=== PATIENT | female | born 1965 | race Caucasian/White ===

== ENCOUNTER 2019-08-27 14:39 | Outpatient (REF) | payer MEDICAID, SELFPAY ==
--- NOTE | 2019-08-27 10:10 | PAPFT_PTH ---
PATIENT: Leola Hayes LOC: [facility] U#:[id number] AGE/SX: 53/F ROOM: RE08/27/[address]: Cliff Gonzalez MD : 1965 BED: DIS: 08/27/2019 SPEC #: [id number] RECD: 08/27/19 16:43 STATUS: CHANTE REDina #: [id number] GREGORY: 08/27/19 10:[address]: Cliff Gonzalez DEPT: [facility] Cytology RECD BY: Sydney Hebert Tissues: 1 - CX/ENDOCX FOR PAP SMEARS Procedures: PAP THIN PREP/UVM Screening HPV DNA PROBE Comments: [id number]
== END 2019-08-27 14:59 ==
LOC: LBN 14:39
PROVIDERS: PCP Family Medicine; Visit Provider Family Medicine
DX: Z12.4 Encounter for screening for malignant neoplasm of cervix (principal); Z11.51 Encounter for screening for human papillomavirus (HPV)
CPT/HCPCS: 88142; 87624

== ENCOUNTER 2019-08-29 03:00 | Outpatient (CLI) | payer MEDICAID, SELFPAY ==
[2019-08-29 10:51] LABS: HGB 13.3 g/dL (12.0-15.5); Mean Corp. HGB Concentration 33.3 g/dL (32.0-36.0); Mean Corpuscular Hemoglobin 29.3 pg (27.0-33.0); Mean Corpuscular Volume 88.1 fL (80-95); Mean Platelet Volume 9.9 fL (8.0-11.0); Platelet Count 337 x1000/uL (130-400); RBC 4.54 m/cumm (4.00-5.20); RBC Distribution Width 13.2 % (11.7-14.6); White Blood Cell Count 4.97 k/cumm (4.4-10.8)
[2019-08-29 11:03] LABS: ALT 36 U/L (14-59); AST 17 U/L (15-37); Alkaline Phosphatase 91 U/L (46-116); Anion Gap 10.5 mmol/L (3-11); BUN 16 mg/dL (7-18); Bilirubin, Total 0.2 mg/dL (0.2-1.0); CO2 26.5 mmol/L (21.0-32.0); CREATININE 0.67 mg/dL (0.55-1.02); Calcium 8.8 mg/dL (8.5-10.1); Calculated LDL 147 mg/dL (<100); Chloride 105 mmol/L (98-107); Cholesterol 211 mg/dL (<200); Glucose 97 mg/dL (74-106); HDL Cholesterol 50 mg/dL (40-60); Potassium 4.5 mmol/L (3.5-5.1); Sodium 142 mmol/L (136-145); Triglyceride 74 mg/dL (<150)
[2019-08-29 11:37] LABS: Hemoglobin A1C 6.2 % (3.8-5.6)
== END 2019-08-29 03:20 ==
PROVIDERS: PCP Family Medicine; Visit Provider Family Medicine
DX: Z83.3 Family history of diabetes mellitus (principal); Z13.1 Encounter for screening for diabetes mellitus; Z13.220 Encounter for screening for lipoid disorders; Z00.00 Encounter for general adult medical examination without abnormal findings
CPT/HCPCS: 36415; 80053; 80061; 85027; 83036

== ENCOUNTER 2020-08-24 02:39 | Outpatient (CLI) | payer MEDICAID, SELFPAY ==
--- NOTE | 2020-08-24 16:22 | DI.MAMMO_ITS ---
EXAM: MAMMO SCREENING CLINICAL HISTORY: screening,Z12.31 TECHNIQUE: Mammograms were interpreted according to the usual protocol including computer analysis w [employer] CAD system, tomosynthesis and C-view imaging. COMPARISON: FINDINGS: Breasts are moderate density with fairly symmetrical distribution of fibroglandular tissue. No domin ant mass or clumped microcalcification is identified in either breast. The current examination is co mpared with previous examinations including December 2015 and there is question of interval development o f a couple of small focal areas of nodularity in the central retroareolar portion of the left breast seen on CC view. On tomographic views, 1 of these questionable areas of nodularity measures up to ab out 9-10 millimeters in diameter. No other significant change seen. Additional mammographic views a nd breast ultrasound requested on the left to evaluate possible small new breast mass or masses. IMPRESSION: Additional mammographic views of the left breast and left breast ultrasound requested as described ab hansae. BI-RADS Category 0 - Assessment Incomplete: Need additional imaging evaluation Breast Density - Category B - Scattered areas of fibroglandular density
== END 2020-08-24 02:59 ==
PROVIDERS: PCP Family Medicine; Visit Provider Family Medicine
DX: Z12.31 Encounter for screening mammogram for malignant neoplasm of breast (principal); R92.8 Other abnormal and inconclusive findings on diagnostic imaging of breast
CPT/HCPCS: 77063; 77067

== ENCOUNTER 2020-08-31 02:01 | Outpatient (CLI) | payer MEDICAID, SELFPAY ==
--- NOTE | 2020-08-31 13:55 | DI.MAMMO_ITS ---
EXAM: MAMMO SCREEN CALL BACK UNI CLINICAL HISTORY: F/U MAMMO, ? DEVELOPMENT OF NODULARITY TECHNIQUE: Spot compression views and tomographic imaging were performed. COMPARISON: 2011 through 2015 and recent exam of 24 August 2020. FINDINGS: No suspicious masses or suspicious microcalcifications are seen. No persistent abnormality is seen on the additional views performed. The findings are consistent wit h overlying fibroglandular tissue. There has been no significant change from prior exams. IMPRESSION: BI-RADS Category 1, Negative Yearly screening mammography is recommended. Breast Density - Category B, scattered fibroglandular densities.
== END 2020-08-31 02:21 ==
PROVIDERS: PCP Family Medicine; Visit Provider Family Medicine
DX: R92.8 Other abnormal and inconclusive findings on diagnostic imaging of breast (principal)
CPT/HCPCS: 77063; 77067

== ENCOUNTER 2020-08-31 19:26 | Outpatient (REF) | payer MEDICAID, SELFPAY ==
[2020-08-31 21:49] LABS: Hemoglobin A1C 6.3 % (<5.7)
[2020-08-31 21:58] LABS: Calculated LDL 124 mg/dL (<100); Cholesterol 224 mg/dL (<200); HDL Cholesterol 47 mg/dL (40-60); Triglyceride 265 mg/dL (<150)
== END 2020-08-31 19:27 | disposition home or self-care (01) ==
LOC: LBN 19:26
PROVIDERS: PCP Family Medicine; Visit Provider Nurse Practitioner Family
DX: Z00.00 Encounter for general adult medical examination without abnormal findings (principal)
CPT/HCPCS: 80061; 83036

== ENCOUNTER 2020-09-22 10:45 | Outpatient (CLI) | payer MEDICAID, SELFPAY ==
[2020-09-23 13:12] LABS: COVID-19 RT-PCR UVMMC Result Negative (Negative)
== END 2020-09-22 10:46 | disposition home or self-care (01) ==
PROVIDERS: PCP Family Medicine; Visit Provider Family Medicine
DX: Z20.822 Contact with and (suspected) exposure to COVID-19 (principal)
CPT/HCPCS: U0003

== ENCOUNTER 2020-09-25 02:40 | Outpatient (CLI) | payer MEDICAID, SELFPAY ==
[2020-09-26 14:37] LABS: COVID-19 RT-PCR UVMMC Result Negative (Negative)
== END 2020-09-25 02:41 | disposition home or self-care (01) ==
LOC: LBO 02:40
PROVIDERS: PCP Family Medicine; Visit Provider Family Medicine
DX: Z20.822 Contact with and (suspected) exposure to COVID-19 (principal)
CPT/HCPCS: U0003

== ENCOUNTER 2021-09-09 03:40 | Outpatient (CLI) | payer MEDICAID, SELFPAY ==
[2021-09-09 11:51] LABS: Abs Immature Grans 0.02 10^3/uL (0.0-0.06); Absolute Basophil Count 0.05 10^3/uL (0.0-0.2); Absolute Eosinophil Count 0.13 10^3/uL (0.0-0.7); Absolute Lymphocyte Count 1.89 10^3/uL (1.2-3.4); Absolute Neutrophil Count 3.16 10^3/uL (1.2-6.7); Basophils % 0.9; Eosinophils % 2.3; HCT 39.5 % (36.0-46.0); HGB 13.3 g/dL (11.2-15.7); Immature Grans % 0.4; Lymphocytes % 33.5; MCH 29.3 pg (27.0-33.0); MCHC 33.7 % (32.0-36.0); MPV 9.7 fL (8.0-11.0); Monocytes % 7.1; Neutrophils % 55.8; Nucleated RBC 0 %; Platelet Count 322 10^3/uL (130-400); RBC 4.54 10^6/uL (3.93-5.22); RDW-SD 41.5 fL; WBC 5.65 10^3/uL (4.4-10.8)
[2021-09-09 12:17] LABS: Hemoglobin A1C 6.4 % (<5.7)
[2021-09-09 13:25] LABS: Anion Gap 6.7 mmol/L (3-11); BUN 18 mg/dL (7-18); CO2 27.3 mmol/L (21.0-32.0); CREATININE 0.8 mg/dL (0.55-1.02); Calcium 9.3 mg/dL (8.5-10.1); Chloride 108 mmol/L (98-107); Glucose 104 mg/dL (74-106); Magnesium 2.4 mg/dL (1.8-2.4); Potassium 4.6 mmol/L (3.5-5.1); Sodium 142 mmol/L (136-145)
== END 2021-09-09 03:41 | disposition home or self-care (01) ==
LOC: LBO 03:41
PROVIDERS: PCP Family Medicine; Visit Provider Family Medicine
DX: R25.2 Cramp and spasm (principal); Z00.00 Encounter for general adult medical examination without abnormal findings; E66.9 Obesity, unspecified; R73.9 Hyperglycemia, unspecified; D64.9 Anemia, unspecified
CPT/HCPCS: 36415; 80048; 83036; 83735; 85025

== ENCOUNTER 2022-09-14 01:55 | Outpatient (CLI) | payer MEDICAID, SELFPAY ==
--- NOTE | 2022-09-14 15:41 | DI.MAMMO_ITS ---
Exam(s) MAMMO SCREENING EXAM: MAMMO SCREENING CLINICAL HISTORY: screening.Z12.39 TECHNIQUE: Bilateral full field digital CC and MLO mammographic images were obtained with 3D tomosyn thesis and utilizing computer aided detection (CAD). COMPARISON: Available for comparison. FINDINGS: Masses/Architectural Distortion: There is a new area of increased density in the upper central right breast on the MLO view. Microcalcifications: No suspicious pleomorphic-type are seen. Skin Thickening/Nipple Retraction: None. IMPRESSION: 1. New focal area of increased density in the upper central right breast on the MLO view. 2. This area should be further evaluated with a spot compression view. Limited right breast ultrasou nd may also be indicated at that time. BI-RADS Category 0 - Assessment Incomplete: Need additional imaging evaluation Breast Density - Category B - Scattered areas of fibroglandular density Breast density category C or D implies that the patient has dense breast tissue. Dense breast tissue is very common and is not abnormal but dense breast tissue can make it harder to find cancer on a ma mmogram. Also, dense breast tissue may increase their breast cancer risk. This information about the result of the mammogram report was provided to the patient to raise their awareness. Use this report when you speak with the patient about their risks for breast cancer, which includes their family hist ory. At that time, you may recommend for more screening tests (Ultrasound or MRI) as they might be us eful based on their risk. A negative radiographic report should not delay biopsy if a dominant or clinically suspicious mass is present. Up to ten percent of cancers are not identified on mammography. A negative report may reinforce clinical impression. Adenosis and dense breasts may obscure an underlying neoplasm. False positive reports average 6 to 10%. Patient will receive a letter notifying them of these results.
== END 2022-09-14 02:15 ==
LOC: DI 01:55
PROVIDERS: PCP Family Medicine; Visit Provider Family Medicine
DX: Z12.31 Encounter for screening mammogram for malignant neoplasm of breast (principal); R92.8 Other abnormal and inconclusive findings on diagnostic imaging of breast
CPT/HCPCS: 77063; 77067

== ENCOUNTER 2022-09-14 03:16 | Outpatient (CLI) | payer MEDICAID, SELFPAY ==
[2022-09-14 17:12] LABS: ALT 34 U/L (14-59); AST 18 U/L (15-37); Albumin 4.1 g/dL (3.4-5.0); Alkaline Phosphatase 89 U/L (46-116); Anion Gap 6.8 mmol/L (3-11); BUN 18 mg/dL (7-18); Bilirubin, Total 0.2 mg/dL (0.2-1.0); CO2 28.2 mmol/L (21.0-32.0); Calcium 9.1 mg/dL (8.5-10.1); Calculated LDL 151 mg/dL (<100); Chloride 105 mmol/L (98-107); Cholesterol 246 mg/dL (<200); Glucose 101 mg/dL (74-106); HDL Cholesterol 51 mg/dL (40-60); Potassium 4.1 mmol/L (3.5-5.1); Sodium 140 mmol/L (136-145); Total Protein 7.6 g/dL (6.4-8.2); Triglyceride 220 mg/dL (<150)
[2022-09-15 09:23] LABS: HIV-1/2 Ag & Ab Screen Negative (Negative)
[2022-09-16 09:36] LABS: Hepatitis C Ab w Rflx HCV PCR Negative (Negative)
== END 2022-09-14 03:17 | disposition home or self-care (01) ==
LOC: LBO 03:16
PROVIDERS: PCP Family Medicine; Visit Provider Family Medicine
DX: R73.09 Other abnormal glucose (principal); E78.5 Hyperlipidemia, unspecified; Z11.4 Encounter for screening for human immunodeficiency virus [HIV]; Z11.59 Encounter for screening for other viral diseases; Z00.00 Encounter for general adult medical examination without abnormal findings; E66.8 Other obesity
CPT/HCPCS: 36415; 80053; 80061; 86803; 87389

== ENCOUNTER 2022-09-23 00:58 | Outpatient (CLI) | payer MEDICAID, SELFPAY ==
--- NOTE | 2022-09-23 10:15 | DI.MAMMO_ITS ---
Exam(s) MAMMO SCREEN CALL BACK UNI EXAM: MAMMO SCREEN CALL BACK UNI CLINICAL HISTORY: NEW FOCAL AREA OF INCREASED DENSITY UPPER CENTRAL RT BREAST ON MLO VIEW TECHNIQUE: Spot compression views with tomographic imaging were performed. COMPARISON: 14 September 2022 and exams back to 2013. FINDINGS: No suspicious masses or suspicious microcalcifications are seen. No persistent abnormality is seen on the additional views performed. The findings are consistent wit h overlying fibroglandular tissue. There has been no significant change from prior exams. IMPRESSION: BI-RADS Category 1, Negative Yearly screening mammography is recommended. Breast Density - Category B, scattered fibroglandular densities.
== END 2022-09-23 01:18 ==
LOC: DI 00:59
PROVIDERS: PCP Family Medicine; Visit Provider Family Medicine
DX: Z12.31 Encounter for screening mammogram for malignant neoplasm of breast (principal); R92.8 Other abnormal and inconclusive findings on diagnostic imaging of breast; N64.59 Other signs and symptoms in breast
CPT/HCPCS: 77063; 77067

== ENCOUNTER 2023-09-04 03:39 | Outpatient (CLI) | payer MEDICAID, SELFPAY ==
[2023-09-04 16:16] LABS: Hemoglobin A1C 6.1 % (<5.7)
[2023-09-04 17:38] LABS: ALT 33 U/L (14-59); AST 16 U/L (15-37); Alkaline Phosphatase 85 U/L (46-116); Anion Gap 13.1 mmol/L (3-11); BUN 20 mg/dL (7-18); Bilirubin, Total 0.2 mg/dL (0.2-1.0); CO2 25.9 mmol/L (21.0-32.0); Calcium 9.4 mg/dL (8.5-10.1); Calculated LDL 151 mg/dL (<100); Chloride 105 mmol/L (98-107); Cholesterol 264 mg/dL (<200); Glucose 140 mg/dL (74-106); HDL Cholesterol 52 mg/dL (40-60); Potassium 4.3 mmol/L (3.5-5.1); Sodium 144 mmol/L (136-145); Total Protein 7.2 g/dL (6.4-8.2); Triglyceride 309 mg/dL (<150)
== END 2023-09-04 03:40 | disposition home or self-care (01) ==
LOC: LBO 03:39
PROVIDERS: PCP Family Medicine; Visit Provider Family Medicine
DX: Z00.00 Encounter for general adult medical examination without abnormal findings (principal); R73.9 Hyperglycemia, unspecified; R73.01 Impaired fasting glucose; Z13.6 Encounter for screening for cardiovascular disorders; E78.5 Hyperlipidemia, unspecified
CPT/HCPCS: 36415; 80053; 80061; 83036

== ENCOUNTER 2024-09-09 02:03 | Outpatient (CLI) | payer MEDICAID, SELFPAY ==
[2024-09-09 11:58] LABS: ALT 25 U/L (14-59); AST 16 U/L (15-37); Albumin 3.9 g/dL (3.4-5.0); Alkaline Phosphatase 77 U/L (46-116); Anion Gap 6.3 mmol/L (3-11); BUN 19 mg/dL (7-18); Bilirubin, Total 0.3 mg/dL (0.2-1.0); CO2 29.7 mmol/L (21.0-32.0); CREATININE 0.9 mg/dL (0.55-1.02); Calcium 8.9 mg/dL (8.5-10.1); Calculated LDL 160 mg/dL (<100); Chloride 106 mmol/L (98-107); Cholesterol 261 mg/dL (<200); Estimated GFR 73.19 (mL/min/1.73m2); Glucose 97 mg/dL (74-106); HDL Cholesterol 55 mg/dL (>or=50); Potassium 4.2 mmol/L (3.5-5.1); Sodium 142 mmol/L (136-145); Total Protein 7.3 g/dL (6.4-8.2); Triglyceride 231 mg/dL (<150)
== END 2024-09-09 02:04 | disposition home or self-care (01) ==
PROVIDERS: PCP Family Medicine; Visit Provider Family Medicine
DX: R73.01 Impaired fasting glucose (principal); R73.9 Hyperglycemia, unspecified; Z13.6 Encounter for screening for cardiovascular disorders; E78.5 Hyperlipidemia, unspecified; Z00.00 Encounter for general adult medical examination without abnormal findings
CPT/HCPCS: 36415; 80053; 80061; 83036

== ENCOUNTER 2024-09-11 12:25 | Outpatient (REF) | payer MEDICAID, SELFPAY ==
--- NOTE | 2024-09-11 15:05 | PAPFT_PTH ---
PATIENT: Leola Hayes LOC: [facility] U#:[id number] AGE/SX: 58/F ROOM: RE09/11/[address]: Harriet Cast : 1965 BED: DIS: 09/11/2024 SPEC #: [id number] RECD: 09/12/24 12:53 STATUS: CHANTE REQ #: [id number] GREGORY: 09/11/24 15:[address]: Harriet Cast DEPT: [facility] Cytology RECD BY: Sydney Hebert Tissues: 1 - CX/ENDOCX FOR PAP SMEARS Procedures: PAP THIN PREP/UVM Screening HPV DNA PROBE Comments: [id number] (HPV 16 & 18/45)
== END 2024-09-11 12:26 | disposition home or self-care (01) ==
LOC: LBN 12:25
PROVIDERS: PCP Family Medicine; Visit Provider Family Medicine
DX: R87.618 Other abnormal cytological findings on specimens from cervix uteri (principal)
CPT/HCPCS: 88142; 87624

== ENCOUNTER 2024-10-02 01:11 | Outpatient (CLI) | payer MEDICAID, SELFPAY ==
--- NOTE | 2024-10-02 07:45 | DI.MAMMO_ITS ---
Exam(s) MAMMO SCREENING EXAM: MAMMO SCREENING CLINICAL HISTORY: screening,z12.39 TECHNIQUE: Bilateral full field digital CC and MLO mammographic images were obtained with 3D tomosyn thesis and utilizing computer aided detection (CAD). COMPARISON: Available for comparison. FINDINGS: Masses/Architectural Distortion: No suspicious masses or areas of architectural distortion are presen t. There is a stable nodule in the medial aspect of the right breast. Microcalcifications: No suspicious pleomorphic-type are seen. Skin Thickening/Nipple Retraction: None. IMPRESSION: 1. No significant interval change with no specific features of malignancy noted. 2. Unless there is more urgent need, screening mammography is recommended, as per [employer] guidelines. BI-RADS Category 1 - Negative Breast Density - Category B - Scattered areas of fibroglandular density Breast density category C or D implies that the patient has dense breast tissue. Dense breast tissue is very common and is not abnormal but dense breast tissue can make it harder to find cancer on a ma mmogram. Also, dense breast tissue may increase their breast cancer risk. This information about the result of the mammogram report was provided to the patient to raise their awareness. Use this report when you speak with the patient about their risks for breast cancer, which includes their family hist ory. At that time, you may recommend for more screening tests (Ultrasound or MRI) as they might be us eful based on their risk. A negative radiographic report should not delay biopsy if a dominant or clinically suspicious mass is present. Up to ten percent of cancers are not identified on mammography. A negative report may reinforce clinical impression. Adenosis and dense breasts may obscure an underlying neoplasm. False positive reports average 6 to 10%. Patient will receive a letter notifying them of these results.
== END 2024-10-02 01:31 ==
LOC: DI 01:12
PROVIDERS: PCP Family Medicine; Visit Provider Family Medicine
DX: Z12.31 Encounter for screening mammogram for malignant neoplasm of breast (principal); R92.323 Mammographic fibroglandular density, bilateral breasts
CPT/HCPCS: 77063; 77067